=== PATIENT | male | born 1975 | race African-American/Black ===

== ENCOUNTER 2019-01-24 09:59 | Inpatient (IN) | payer MEDICAID, OTHER ==
[2019-01-24] VITALS (38 sets, daily range): BP systolic 91–144; BP diastolic 49–94
[~2019-01-24] VITALS: Ht 185.4 cm; Wt 110.0 kg
[2019-01-24 10:39] LABS: BASOPHILS % 0.8 % (0.0-2.0); EOSINOPHILS % 0.4 % (0.0-5.0); HEMOGLOBIN. 14.9 g/dL (14.0-18.0); LYMPHOCYTES % 24.4 % (20.0-50.0); MEAN CORPUSCULAR HEMOGLOBIN 29.5 pg (28.0-32.0); MEAN PLATELET VOLUME 7.7 fl (7.4-10.4); MONOCYTES % 7.2 % (2.0-8.0); NEUTROPHILS % 67.2 % (40.0-76.0); PLATELET 254 x1000/uL (130-400); RED BLOOD CELL COUNT 5.05 mill/uL (4.7-6.1); RED CELL DISTRIBUTION WIDTH 15.1 % (11.6-14.6)
[2019-01-24 10:45] LABS: CHLORIDE 102 mEq/L (98-107)
[2019-01-24 10:49] LABS: ETHANOL BLOOD < 10 mg/dL
[2019-01-24] MEDS ORDERED: SODIUM CHLORIDE 0.9% 1,000 ML IV ONE (10:51)
[2019-01-24 10:58] LABS: D-DIMER 13.05 mg/L FEU (<0.50); INR 1.2; PARTIAL THROMBOPLASTIN TIME 27.1 sec (23.4-31.0)
[2019-01-24] MEDS ORDERED: HEPARIN 25,000 UNITS PREMIX 500 ML IV SCH (11:00)
[2019-01-24] MEDS ORDERED: HEPARIN 5000 UNITS/ML VIAL IV ONE (11:00)
[2019-01-24] MEDS ORDERED: HEPARIN 5000 UNITS/ML VIAL IV PRN ×2 (11:15)
[2019-01-24] MEDS ORDERED: HEPARIN 25,000 UNITS PREMIX 500 ML IV PRN ×2 (11:15→14:15)
[2019-01-24] MEDS ORDERED: HEPARIN BOLUS PRN aPTT <36 IV ×2 (11:15→11:28)
[2019-01-24] MEDS ORDERED: HEPARIN BOLUS PRN aPTT 37-44 IV (11:15)
[2019-01-24 11:52] LABS: BG BASE EXCESS -2.5 mmol/L (-2.0-2.0); BG CARBOXYHEMOGLOBIN 0.9 % (0.5-1.5); BG DEOXYHEMOGLOBIN 0.8 % (0.0-5.0); BG FRACTION INSPIRED OXYGEN 100; BG HCO3 ACT 20.4 mmol/L (22.0-26.0); BG METHEMOGLOBIN 0.1 % (0.0-1.5); BG OXYGEN SATURATION 99.2 % (92.0-98.5); BG OXYHEMOGLOBIN 98.2 % (94.0-97.0); BG PCO2 30.2 mmHg (35.0-45.0); BG PH 7.447 (7.350-7.450); BG PO2 194.9 mmHg (75.0-100.0); BG SAMPLE SITE RIGHT RADIAL; BG TOTAL HEMOGLOBIN 14.5 g/dL (12.0-18.0); BG VENT MODE MASK - NRB
[2019-01-24] MEDS ORDERED: ALTEPLASE 100MG/VIAL IV STA (12:40)
[2019-01-24] MEDS ORDERED: ALTEPLASE IV STA (12:40)
[2019-01-24] MEDS ORDERED: IOHEXOL-350 100 ML BOTTLE ONE (12:42)
[2019-01-24] MEDS ORDERED: SUCCINYLCHOLINE CHLORIDE 200MG/10ML IV ONE (13:00)
[2019-01-24] MEDS ORDERED: ALTEPLASE 100MG/VIAL IV NR (13:00)
[2019-01-24] MEDS ORDERED: MIDAZOLAM HCL 50 MG in DEXTROSE 5% WATER 40 ML IV ONE (13:00)
[2019-01-24] MEDS ORDERED: LORAZEPAM 2MG/ML CPJ IV ONE (13:00)
[2019-01-24] MEDS ORDERED: ETOMIDATE 2MG/ML 10ML VIAL IV ONE (13:00)
[2019-01-24 13:24] LABS: CLARITY URINE TURBID (CLEAR); COLOR URINE YELLOW (YELLOW); KETONES URINE NEGATIVE (NEGATIVE); LEUKOCYTE ESTERASE URINE NEGATIVE (NEGATIVE); NITRITE URINE NEGATIVE (NEGATIVE); OCCULT BLOOD URINE 2+ (NEGATIVE); PROTEIN URINE 4+ (NEGATIVE); SPECIFIC GRAVITY URINE 1.068 (1.005-1.030)
[2019-01-24 13:39] LABS: METHADONE URINE SCREEN NEGATIVE (NEGATIVE); OPIATES URINE SCREEN NEGATIVE (NEGATIVE)
[2019-01-24 13:40] LABS: *BARBITURATES SCREEN URINE NEGATIVE (NEGATIVE); *BENZODIAZEPINES SCREEN URINE NEGATIVE (NEGATIVE); CANNABINOID URINE SCREEN PRESUMTIVE POSITIVE (NEGATIVE)
[2019-01-24 13:41] LABS: *AMPHETAMINES SCREEN URINE NEGATIVE (NEGATIVE); *COCAINE SCREEN URINE NEGATIVE (NEGATIVE); PHENCYCLIDINE URINE SCREEN NEGATIVE (NEGATIVE)
[2019-01-24 13:47] LABS: BG BASE EXCESS -8.2 mmol/L (-2.0-2.0); BG CARBOXYHEMOGLOBIN 0.9 % (0.5-1.5); BG DEOXYHEMOGLOBIN 1.6 % (0.0-5.0); BG FRACTION INSPIRED OXYGEN 100; BG HCO3 ACT 21.9 mmol/L (22.0-26.0); BG METHEMOGLOBIN 0.4 % (0.0-1.5); BG OXYGEN SATURATION 98.4 % (92.0-98.5); BG OXYHEMOGLOBIN 97.1 % (94.0-97.0); BG PH 7.139 (7.350-7.450); BG PO2 164.6 mmHg (75.0-100.0); BG SAMPLE SITE RIGHT RADIAL; BG TIDAL VOLUME(mL) 600 mL; BG TOTAL HEMOGLOBIN 14.5 g/dL (12.0-18.0); BG VENT MODE VENT - A/C; BG VENT RATE 18 set
[2019-01-24] MEDS ORDERED: PROPOFOL 10MG/ML 100ML 100 ML IV SCH (14:00)
[2019-01-24] MEDS ORDERED: FUROSEMIDE 20MG/2ML VIAL IVP ONE (14:00)
[2019-01-24] MEDS ORDERED: MIDAZOLAM HCL 50 MG in DEXTROSE 5% WATER 40 ML IV NR (14:00)
[2019-01-24] MEDS ORDERED: ONDANSETRON HCL 4MG/2ML INJ IV PRN (14:15)
[2019-01-24] MEDS ORDERED: CEFTRIAXONE 1 G PREMIX 50 ML IV SCH (14:15)
[2019-01-24 15:15] LABS: HEPATITIS B SURFACE ANTIGEN NEGATIVE
[2019-01-24 15:45] LABS: HEPATITIS A AB IGM NEGATIVE (NEGATIVE)
[2019-01-24] MEDS: PROPOFOL 10MG/ML 100ML 100 ML IV PRN ×2 (16:57→21:25)
[2019-01-24] MEDS: HEPARIN 25,000 UNITS PREMIX 500 ML IV SCH (17:26)
[2019-01-24] MEDS: MIDAZOLAM HCL 100 MG in DEXT 5% WATER 80 ML IV PRN (18:13)
[2019-01-24] MEDS: IPRATROPIUM/ALBUTEROL 0.5-3(2.5)MG/3ML NEB HHN PRN (20:36)
[2019-01-24] MEDS: FAMOTIDINE 20MG/2ML VIAL IV SCH (21:25)
[2019-01-24] MEDS: LEVOFLOXACIN 750MG PREMIX 150 ML IV SCH (21:25)
[2019-01-25] VITALS (95 sets, daily range): BP systolic 60–152; BP diastolic 27–99
[2019-01-25] MEDS: PROPOFOL 10MG/ML 100ML 100 ML IV PRN ×6 (01:49→22:49)
[2019-01-25] MEDS: IPRATROPIUM/ALBUTEROL 0.5-3(2.5)MG/3ML NEB HHN PRN (04:54)
[2019-01-25] MEDS: MIDAZOLAM HCL 100 MG in DEXT 5% WATER 80 ML IV PRN (05:02)
[2019-01-25] MEDS: BLOOD SUGAR DIAGNOSTIC STRIP TEST SCH ×4 (05:11→18:23)
[2019-01-25 06:16] LABS: BASOPHILS % 0.3 % (0.0-2.0); EOSINOPHILS % 0.6 % (0.0-5.0); HEMATOCRIT. 38.3 % (42.0-52.0); HEMOGLOBIN. 12.8 g/dL (14.0-18.0); LYMPHOCYTES % 29.6 % (20.0-50.0); MEAN CORPUSCULAR HEMOGLOBIN 29.7 pg (28.0-32.0); MEAN CORPUSCULAR VOLUME 88.7 fL (80.0-94.0); MEAN PLATELET VOLUME 8.1 fl (7.4-10.4); MONOCYTES % 3.5 % (2.0-8.0); PLATELET 176 x1000/uL (130-400); RED BLOOD CELL COUNT 4.32 mill/uL (4.7-6.1); RED CELL DISTRIBUTION WIDTH 14.8 % (11.6-14.6)
[2019-01-25 06:28] LABS: CHLORIDE 106 mEq/L (98-107)
[2019-01-25 06:34] LABS: PHOSPHORUS 2.9 mg/dL (2.5-4.9)
[2019-01-25] MEDS: HEPARIN 25,000 UNITS PREMIX 500 ML IV SCH ×2 (06:35→21:35)
[2019-01-25] MEDS: FAMOTIDINE 20MG/2ML VIAL IV SCH ×2 (09:17→20:50)
[2019-01-25 10:05] LABS: BG BASE EXCESS 0.9 mmol/L (-2.0-2.0); BG CARBOXYHEMOGLOBIN 0.5 % (0.5-1.5); BG FRACTION INSPIRED OXYGEN 60; BG HCO3 ACT 24.1 mmol/L (22.0-26.0); BG METHEMOGLOBIN 0.1 % (0.0-1.5); BG OXYHEMOGLOBIN 98.4 % (94.0-97.0); BG PCO2 34.4 mmHg (35.0-45.0); BG PH 7.464 (7.350-7.450); BG PO2 158.1 mmHg (75.0-100.0); BG SAMPLE SITE RIGHT RADIAL; BG TIDAL VOLUME(mL) 600 mL; BG VENT MODE VENT - A/C; BG VENT RATE 24 set
[2019-01-25] MEDS ORDERED: FENTANYL CITRATE/PF 500 MCG in SODIUM CHLORIDE 0.9% 40 ML IV PRN (12:45)
[2019-01-25] MEDS: HEPARIN BOLUS PRN aPTT 37-44 IV (13:07)
[2019-01-25] MEDS ORDERED: KCL 20MEQ/100ML PREMIX 100 ML IV SCH (17:00)
[2019-01-25] MEDS: DEXTROSE 50% WATER 50ML SYRINGE IV PRN (18:23)
[2019-01-25] MEDS ORDERED: DEXTROSE 50% WATER 50ML SYRINGE IV NR (18:30)
[2019-01-25] MEDS ORDERED: DEXTROSE 50% WATER 50ML SYRINGE IV ONE (18:30)
[2019-01-25] MEDS: LEVOFLOXACIN 750MG PREMIX 150 ML IV SCH (20:51)
[2019-01-26] VITALS (77 sets, daily range): BP systolic 104–187; BP diastolic 48–131
[2019-01-26] MEDS: DEXTROSE 50% WATER 50ML SYRINGE IV PRN (00:44)
[2019-01-26] MEDS: PROPOFOL 10MG/ML 100ML 100 ML IV PRN ×4 (02:19→11:14)
[2019-01-26 02:47] LABS: BASOPHILS % 0.5 % (0.0-2.0); EOSINOPHILS % 0.7 % (0.0-5.0); HEMATOCRIT. 41.8 % (42.0-52.0); HEMOGLOBIN. 13.9 g/dL (14.0-18.0); LYMPHOCYTES % 17.4 % (20.0-50.0); MEAN CORPUSCULAR HEMOGLOBIN 29.5 pg (28.0-32.0); MEAN CORPUSCULAR VOLUME 88.5 fL (80.0-94.0); MEAN PLATELET VOLUME 7.9 fl (7.4-10.4); NEUTROPHILS % 74.4 % (40.0-76.0); PLATELET 190 x1000/uL (130-400); RED BLOOD CELL COUNT 4.72 mill/uL (4.7-6.1); RED CELL DISTRIBUTION WIDTH 14.7 % (11.6-14.6)
[2019-01-26 02:50] LABS: CHLORIDE 104 mEq/L (98-107)
[2019-01-26 02:58] LABS: PHOSPHORUS 2.7 mg/dL (2.5-4.9)
[2019-01-26 03:00] LABS: CREATINE KINASE 83 IU/L (39-308)
[2019-01-26] MEDS: BLOOD SUGAR DIAGNOSTIC STRIP TEST SCH ×4 (05:27→17:37)
[2019-01-26] MEDS: HEPARIN BOLUS PRN aPTT 37-44 IV ×2 (08:14→21:06)
[2019-01-26] MEDS: FAMOTIDINE 20MG/2ML VIAL IV SCH ×2 (09:05→21:38)
[2019-01-26] MEDS: ACETAMINOPHEN 325MG TABLET PO PRN ×2 (09:07→22:10)
[2019-01-26 09:35] LABS: BG BASE EXCESS 1.2 mmol/L (-2.0-2.0); BG CARBOXYHEMOGLOBIN 0.7 % (0.5-1.5); BG DEOXYHEMOGLOBIN 1.5 % (0.0-5.0); BG FRACTION INSPIRED OXYGEN 40; BG HCO3 ACT 24.6 mmol/L (22.0-26.0); BG METHEMOGLOBIN 0.3 % (0.0-1.5); BG OXYGEN SATURATION 98.5 % (92.0-98.5); BG OXYHEMOGLOBIN 97.5 % (94.0-97.0); BG PCO2 35.1 mmHg (35.0-45.0); BG PH 7.463 (7.350-7.450); BG SAMPLE SITE RIGHT RADIAL; BG TIDAL VOLUME(mL) 600 mL; BG TOTAL HEMOGLOBIN 14.3 g/dL (12.0-18.0); BG VENT MODE VENT - A/C; BG VENT RATE 18 set
[2019-01-26] MEDS ORDERED: POTASSIUM CHLORIDE INJ 40 MEQ in DEXT 5% WATER 250 ML IV SCH (11:00)
[2019-01-26] MEDS ORDERED: AMLODIPINE 5MG TABLET NG NR (11:45)
[2019-01-26] MEDS ORDERED: LORAZEPAM 2MG/ML CPJ IV NR (12:45)
[2019-01-26] MEDS: HEPARIN 25,000 UNITS PREMIX 500 ML IV SCH (13:36)
[2019-01-26 13:49] LABS: BG BASE EXCESS 1.2 mmol/L (-2.0-2.0); BG DEOXYHEMOGLOBIN 0.8 % (0.0-5.0); BG FRACTION INSPIRED OXYGEN 40; BG METHEMOGLOBIN 0.3 % (0.0-1.5); BG OXYGEN SATURATION 99.2 % (92.0-98.5); BG OXYHEMOGLOBIN 97.9 % (94.0-97.0); BG PCO2 37.1 mmHg (35.0-45.0); BG PH 7.446 (7.350-7.450); BG PRESSURE SUPPORT 8; BG SAMPLE SITE RIGHT RADIAL; BG TOTAL HEMOGLOBIN 14.3 g/dL (12.0-18.0); BG VENT MODE VENT - CPAP
[2019-01-26] MEDS: LEVOFLOXACIN 750MG PREMIX 150 ML IV SCH (21:43)
[2019-01-27] VITALS (28 sets, daily range): BP systolic 115–161; BP diastolic 41–103
[2019-01-27] MEDS: BLOOD SUGAR DIAGNOSTIC STRIP TEST SCH ×5 (00:14→23:34)
[2019-01-27] MEDS: HEPARIN 25,000 UNITS PREMIX 500 ML IV SCH (03:29)
[2019-01-27 03:43] LABS: EOSINOPHILS % 1.1 % (0.0-5.0); HEMATOCRIT. 41.4 % (42.0-52.0); LYMPHOCYTES % 23.4 % (20.0-50.0); MEAN CORPUSCULAR HEMOGLOBIN 29.6 pg (28.0-32.0); MEAN CORPUSCULAR VOLUME 87.7 fL (80.0-94.0); MEAN PLATELET VOLUME 7.8 fl (7.4-10.4); MONOCYTES % 10.6 % (2.0-8.0); NEUTROPHILS % 63.9 % (40.0-76.0); PLATELET 224 x1000/uL (130-400); RED BLOOD CELL COUNT 4.72 mill/uL (4.7-6.1); RED CELL DISTRIBUTION WIDTH 14.4 % (11.6-14.6)
[2019-01-27 03:51] LABS: CHLORIDE 106 mEq/L (98-107)
[2019-01-27 03:58] LABS: PHOSPHORUS 3.4 mg/dL (2.5-4.9)
[2019-01-27] MEDS ORDERED: MORPHINE SULFATE 2 MG/ML CPJ (NOT FOR IM USE) IV NR (08:30)
[2019-01-27] MEDS ORDERED: POTASSIUM CHLORIDE 20MEQ TABLET SR PO NR (08:45)
[2019-01-27] MEDS: APIXABAN 5 MG TABLET PO SCH ×2 (08:57→22:15)
[2019-01-27] MEDS: AMLODIPINE 5MG TABLET NG SCH (08:58)
[2019-01-27] MEDS: FAMOTIDINE 20MG/2ML VIAL IV SCH ×2 (08:58→22:15)
[2019-01-27] MEDS ORDERED: IPRATROPIUM/ALBUTEROL 0.5-3(2.5)MG/3ML NEB HHN PRN (12:15)
[2019-01-27] MEDS: LEVOFLOXACIN 750MG PREMIX 150 ML IV SCH (23:27)
[2019-01-28] VITALS: BP 129/52
[2019-01-28 04:00] VITALS: BP 128/41
[2019-01-28] MEDS: ACETAMINOPHEN 325MG TABLET PO PRN ×3 (04:51→20:02)
[2019-01-28] MEDS: BLOOD SUGAR DIAGNOSTIC STRIP TEST SCH ×4 (05:46→23:59)
[2019-01-28 07:52] LABS: BASOPHILS % 0.5 % (0.0-2.0); EOSINOPHILS % 0.9 % (0.0-5.0); HEMATOCRIT. 40.9 % (42.0-52.0); HEMOGLOBIN. 13.9 g/dL (14.0-18.0); LYMPHOCYTES % 16.7 % (20.0-50.0); MEAN CORPUSCULAR HEMOGLOBIN 29.6 pg (28.0-32.0); MEAN CORPUSCULAR VOLUME 86.9 fL (80.0-94.0); MEAN PLATELET VOLUME 7.9 fl (7.4-10.4); MONOCYTES % 12.5 % (2.0-8.0); NEUTROPHILS % 69.4 % (40.0-76.0); PLATELET 287 x1000/uL (130-400); RED BLOOD CELL COUNT 4.71 mill/uL (4.7-6.1); RED CELL DISTRIBUTION WIDTH 14.3 % (11.6-14.6)
[2019-01-28 08:00] VITALS: BP 121/59
[2019-01-28] MEDS: FAMOTIDINE 20MG/2ML VIAL IV SCH ×2 (08:09→20:01)
[2019-01-28] MEDS: APIXABAN 5 MG TABLET PO SCH ×2 (08:09→20:01)
[2019-01-28] MEDS: AMLODIPINE 5MG TABLET NG SCH (08:10)
[2019-01-28 09:15] LABS: CHLORIDE 102 mEq/L (98-107)
[2019-01-28 12:00] VITALS: BP 113/74
[2019-01-28] MEDS ORDERED: POTASSIUM CHLORIDE 20MEQ TABLET SR PO NR (12:00)
[2019-01-28] MEDS: GUAIFENESIN 600MG ER TABLET PO SCH ×2 (12:42→20:01)
[2019-01-28] MEDS: IPRATROPIUM/ALBUTEROL 0.5-3(2.5)MG/3ML NEB HHN SCH ×2 (14:03→20:57)
[2019-01-28 16:00] VITALS: BP 127/72
[2019-01-28 20:00] VITALS: BP 140/77
[2019-01-28] MEDS: LEVOFLOXACIN 750MG PREMIX 150 ML IV SCH (23:59)
[2019-01-29] VITALS: BP 147/70
[2019-01-29] MEDS: IPRATROPIUM/ALBUTEROL 0.5-3(2.5)MG/3ML NEB HHN SCH ×4 (01:47→22:32)
[2019-01-29 04:00] VITALS: BP 115/54
[2019-01-29] MEDS: BLOOD SUGAR DIAGNOSTIC STRIP TEST SCH ×3 (06:00→18:00)
[2019-01-29 08:00] VITALS: BP 108/66
[2019-01-29 08:43] LABS: HEMATOCRIT. 41.4 % (42.0-52.0); HEMOGLOBIN. 14.1 g/dL (14.0-18.0); MEAN CORPUSCULAR HEMOGLOBIN 29.7 pg (28.0-32.0); MEAN CORPUSCULAR VOLUME 87.1 fL (80.0-94.0); MEAN PLATELET VOLUME 8.1 fl (7.4-10.4); PLATELET 323 x1000/uL (130-400); RED BLOOD CELL COUNT 4.76 mill/uL (4.7-6.1)
[2019-01-29] MEDS: AMLODIPINE 5MG TABLET NG SCH (09:00)
[2019-01-29] MEDS: GUAIFENESIN 600MG ER TABLET PO SCH ×2 (09:36→21:06)
[2019-01-29] MEDS: FAMOTIDINE 20MG/2ML VIAL IV SCH ×2 (09:36→21:05)
[2019-01-29] MEDS: APIXABAN 5 MG TABLET PO SCH ×2 (09:36→21:06)
[2019-01-29 10:40] LABS: CHLORIDE 100 mEq/L (98-107)
[2019-01-29 10:48] LABS: PHOSPHORUS 2.6 mg/dL (2.5-4.9)
[2019-01-29 12:00] VITALS: BP 114/60
[2019-01-29 13:03] LABS: PLATELET ESTIMATE NORMAL
[2019-01-29 20:00] VITALS: BP 129/56
[2019-01-29] MEDS: ACETAMINOPHEN 325MG TABLET PO PRN (21:06)
[2019-01-29] MEDS: LEVOFLOXACIN 750MG PREMIX 150 ML IV SCH (23:52)
[2019-01-30] VITALS: BP 149/74
[2019-01-30] MEDS: IPRATROPIUM/ALBUTEROL 0.5-3(2.5)MG/3ML NEB HHN SCH ×4 (02:17→22:25)
[2019-01-30 04:00] VITALS: BP 147/69
[2019-01-30] MEDS: BLOOD SUGAR DIAGNOSTIC STRIP TEST SCH ×4 (06:19→18:21)
[2019-01-30 08:00] VITALS: BP 123/64
[2019-01-30 08:06] LABS: CHLORIDE 101 mEq/L (98-107)
[2019-01-30 08:09] LABS: HEMATOCRIT. 41.2 % (42.0-52.0); MEAN CORPUSCULAR HEMOGLOBIN 29.7 pg (28.0-32.0); MEAN CORPUSCULAR VOLUME 87.4 fL (80.0-94.0); MEAN PLATELET VOLUME 7.9 fl (7.4-10.4); PLATELET 400 x1000/uL (130-400); RED BLOOD CELL COUNT 4.72 mill/uL (4.7-6.1); RED CELL DISTRIBUTION WIDTH 14.4 % (11.6-14.6)
[2019-01-30 08:18] LABS: PHOSPHORUS 2.9 mg/dL (2.5-4.9)
[2019-01-30] MEDS: FAMOTIDINE 20MG/2ML VIAL IV SCH ×2 (09:01→22:01)
[2019-01-30] MEDS: GUAIFENESIN 600MG ER TABLET PO SCH ×2 (09:01→22:01)
[2019-01-30] MEDS: AMLODIPINE 5MG TABLET NG SCH (09:01)
[2019-01-30] MEDS: APIXABAN 5 MG TABLET PO SCH ×2 (09:01→22:00)
[2019-01-30 12:00] VITALS: BP 144/74
[2019-01-30 16:00] VITALS: BP 146/63
[2019-01-30 20:00] VITALS: BP 116/73
[2019-01-30] MEDS: LEVOFLOXACIN 750MG PREMIX 150 ML IV SCH (22:51)
[2019-01-31] VITALS: BP 113/67
[2019-01-31] MEDS: IPRATROPIUM/ALBUTEROL 0.5-3(2.5)MG/3ML NEB HHN SCH ×2 (03:30→07:50)
[2019-01-31 04:00] VITALS: BP 107/57
[2019-01-31] MEDS: BLOOD SUGAR DIAGNOSTIC STRIP TEST SCH ×3 (06:45→11:26)
[2019-01-31 08:00] VITALS: BP 103/82
[2019-01-31] MEDS: AMLODIPINE 5MG TABLET NG SCH (09:00)
[2019-01-31] MEDS: APIXABAN 5 MG TABLET PO SCH (09:09)
[2019-01-31] MEDS: FAMOTIDINE 20MG/2ML VIAL IV SCH (09:09)
[2019-01-31] MEDS: GUAIFENESIN 600MG ER TABLET PO SCH (09:09)
[2019-01-31 09:37] LABS: BASOPHILS % 0.5 % (0.0-2.0); EOSINOPHILS % 3.2 % (0.0-5.0); HEMOGLOBIN. 13.8 g/dL (14.0-18.0); LYMPHOCYTES % 25.8 % (20.0-50.0); MEAN CORPUSCULAR HEMOGLOBIN 28.9 pg (28.0-32.0); MEAN CORPUSCULAR VOLUME 87.6 fL (80.0-94.0); MEAN PLATELET VOLUME 7.7 fl (7.4-10.4); MONOCYTES % 10.2 % (2.0-8.0); NEUTROPHILS % 60.3 % (40.0-76.0); PLATELET 465 x1000/uL (130-400); RED BLOOD CELL COUNT 4.79 mill/uL (4.7-6.1); RED CELL DISTRIBUTION WIDTH 14.3 % (11.6-14.6)
[2019-01-31 09:54] LABS: CHLORIDE 101 mEq/L (98-107)
[2019-01-31 10:03] LABS: PHOSPHORUS 2.7 mg/dL (2.5-4.9)
[2019-01-31] MEDS ORDERED: AMLO5TAB88 NG (10:42)
[2019-01-31] MEDS ORDERED: APIX5TAB PO (10:42)
[2019-01-31] MEDS ORDERED: POTASSIUM CHLORIDE 20MEQ TABLET SR PO NR (10:45)
[2019-01-31 11:35] VITALS: BP 103/82
[2019-01-31 12:00] VITALS: BP 122/55
[2019-01-31 14:51] LABS: PLATELET ESTIMATE NORMAL
[2019-01-31] MEDS ORDERED: LEVOFLOXACIN 250MG TABLET PO SCH (21:00)
[2019-02-03] MEDS ORDERED: APIXABAN 5 MG TABLET PO SCH (09:00)
== END 2019-01-31 13:36 | disposition home or self-care (01) | DRG 720 ==
LOC: ER 10:05 → EDBEDREQ 10:13 → MICUNO 10:54 → EDBEDREQSVC 11:11 → EDBEDREQ 11:11 → EDBEDREQTM 11:11 → ENRESERV 13:54 → 5WST 01-27 18:52
PROVIDERS: ADMIT Internal Medicine; ATTEND Internal Medicine
PROC: 5A1945Z Respiratory Ventilation, 24-96 Consecutive Hours (ICD-10-PCS; principal; 2019-01-24)
PROC: 0BH17EZ Insertion of Endotracheal Airway into Trachea, Via Natural or Artificial Opening (ICD-10-PCS; 2019-01-24)
PROC: 3E03317 Introduction of Other Thrombolytic into Peripheral Vein, Percutaneous Approach (ICD-10-PCS; 2019-01-24)
DX: A41.9 Sepsis, unspecified organism (principal); J96.01 Acute respiratory failure with hypoxia; I26.99 Other pulmonary embolism without acute cor pulmonale; N17.0 Acute kidney failure with tubular necrosis; E22.2 Syndrome of inappropriate secretion of antidiuretic hormone; E87.2 Acidosis; D68.59 Other primary thrombophilia; E46 Unspecified protein-calorie malnutrition; I16.1 Hypertensive emergency; I82.431 Acute embolism and thrombosis of right popliteal vein; R74.0 Nonspecific elevation of levels of transaminase and lactic acid dehydrogenase [LDH]; R31.9 Hematuria, unspecified; T83.091A Other mechanical complication of indwelling urethral catheter, initial encounter; I11.9 Hypertensive heart disease without heart failure; E87.6 Hypokalemia; I27.81 Cor pulmonale (chronic); N39.0 Urinary tract infection, site not specified; E66.09 Other obesity due to excess calories; I42.9 Cardiomyopathy, unspecified; F12.90 Cannabis use, unspecified, uncomplicated; J98.11 Atelectasis; Z78.1 Physical restraint status; Z79.01 Long term (current) use of anticoagulants; Z79.899 Other long term (current) drug therapy; Z86.72 Personal history of thrombophlebitis; Z88.0 Allergy status to penicillin; Z68.32 Body mass index [BMI] 32.0-32.9, adult
CPT/HCPCS: 31500; 36415; 36600; 71045; 71275; 76700; 76770; 80048; 80076; 80305; 80320; 81003; 82375; 82550; 82805; 82962; 83605; 83735; 83880; 84100; 84145; 84478; 84484; 85379; 86705; 86709; 86803; 86850; 86900; 87340; 93005; 93306; 93970; 94002; 94640; 99291; J1644; J1940; J1956; J2060; J2250; J2270; J2704; J2997; J3010; J3480; J3490; J7030; J7060; J7620; Q9967; G0480